=== PATIENT | male | born 1970 | race Caucasian/White ===

== ENCOUNTER 2017-01-14 03:20 | Emergency (ER) | payer BC ==
[2017-01-14] MEDS ORDERED: Ketorolac 60 MG/2 ML SDV IM ONE (03:59)
--- NOTE | 2017-01-14 05:32 | EDM.PDOC ---
ED HPI Trauma - General Chief Complaint: Lower Extremity Injury/Pain Stated Complaint: PAIN IN LEFT HIP - History of Present Illness INITIAL COMMENTS - FREE TEXT/NARRATIVE: HISTORY AND PHYSICAL: History of present illness: This 46-year-old male presents with chief complaint of left hip pain status post fall he denies other trauma or concern Review of systems: As per history of present illness and below otherwise all systems reviewed and negative. Past medical history: As per history of present illness and as reviewed below otherwise noncontributory. Surgical history: As per history of present illness and as reviewed below otherwise noncontributory. Social history: No reported history of drug or alcohol abuse. Family history: As per history of present illness and as reviewed below otherwise noncontributory. Physical exam: HEENT: Atraumatic, normocephalic, pupils reactive, negative for conjunctival pallor or scleral icterus, mucous membranes moist, throat clear, neck supple, nontender, trachea midline. Lungs: Clear to auscultation, breath sounds equal bilaterally, chest nontender. Heart: S1S2, regular, negative for clicks, rubs, or JVD. Abdomen: Soft, nondistended, nontender. Negative for masses or hepatosplenomegaly. Negative for costovertebral tenderness. Pelvis: Stable nontender. Genitourinary: Deferred. Rectal: Deferred. Extremities: Patient has mild tenderness his left hip he is no crepitation no point tenderness no erythema no warmth neurovascular exam is unremarkable Neuro: Awake, alert, oriented. Cranial nerves II through XII unremarkable. Cerebellum unremarkable. Motor and sensory unremarkable throughout. Exam nonfocal. Diagnostics: X-ray left hip with pelvis Therapeutics: None Impression: #1 observation status post fall #2 acute left hip injury (contusion) Definitive disposition and diagnosis as appropriate pending reevaluation and review of above. Allergies/ADRs: Allergies No Known Allergies Allergy (Verified 12/19/16 11:22) Home Medications: Ambulatory Orders Adalimumab [Humira] 40 mg SQ ONETIME 12/19/16 [Confirmed 01/14/17] hydrOXYzine HCl [Atarax] 1 tab PO TID 01/14/17 [Confirmed 01/14/17] traMADol [Ultram] 1 tab PO ASDIRECTED 01/14/17 [Confirmed 01/14/17] Past Medical History HEENT History: Reports: None Cardiovascular History: Reports: None Respiratory History: Reports: None Gastrointestinal History: Reports: None Genitourinary History: Reports: None Musculoskeletal History: Reports: None Neurological History: Reports: None Psychiatric History: Reports: None Endocrine/Metabolic History: Reports: None Hematologic History: Reports: None Immunologic History: Reports: None Oncologic (Cancer) History: Reports: None Dermatologic History: Reports: Psoriasis - Infectious Disease History Infectious Disease History: Reports: C-difficile Social & Family History - Family History Family Medical History: Noncontributory - Tobacco Use Smoking Status *Q: Current Every Day Smoker Years of Tobacco use: 10 Packs/Tins Daily: 0.5 Second Hand Smoke Exposure: Yes - Caffeine Use Caffeine Use: Reports: Soda, Tea - Recreational Drug Use Recreational Drug Use: No Review of Systems - Review of Systems Review Of Systems: ROS reveals no pertinent complaints other than HPI. Trauma Exam - Physical Exam Exam: See Below (See dictated) Course - Vital Signs Last Recorded V/S: Last Vital Signs Temp 36.3 C 01/14/17 04:43 Pulse 73 01/14/17 04:43 Resp 16 01/14/17 04:43 BP 124/61 01/14/17 04:43 Pulse Ox 98 01/14/17 04:43 - Orders/Labs/Meds Orders: Active Orders 24 hr Category Date Time Status Hip Min 2V or 3V Lt [CR] Stat Exams 01/14/17 03:23 Taken Pelvis 1V or 2V [CR] Stat Exams 01/14/17 05:00 Taken Meds: Medications Discontinued Medications Generic Name Dose Route Start Last Admin Trade Name Freq PRN Reason Stop Dose Admin Ketorolac Tromethamine 60 mg 01/14/17 03:59 01/14/17 04:05 Toradol IM 01/14/17 04:00 60 mg ONETIME ONE Administration Departure - Departure Time of Disposition: 05:31 Disposition: Home, Self-Care 01 Condition: good Clinical Impression: Fall, Contusion Forms: ED Department Discharge Additional Instructions: The following information is given to patients seen in the emergency department who are being discharged to home. This information is to outline your options for follow-up care. We provide all patients seen in our emergency department with a follow-up referral. The need for follow-up, as well as the timing and circumstances, are variable depending upon the specifics of your emergency department visit. If you don't have a primary care physician on staff, we will provide you with a referral. We always advise you to contact your personal physician following an emergency department visit to inform them of the circumstance of the visit and for follow-up with them and/or the need for any referrals to a consulting specialist. The emergency department will also refer you to a specialist when appropriate. This referral assures that you have the opportunity for followup care with a specialist. All of these measure are taken in an effort to provide you with optimal care, which includes your followup. Under all circumstances we always encourage you to contact your private physician who remains a resource for coordinating your care. When calling for followup care, please make the office aware that this follow-up is from your recent emergency room visit. If for any reason you are refused follow-up, please contact the [facility] emergency department at and asked to speak to the emergency department charge nurse. Motrin or Tylenol as directed follow up primary medical doctor one to 2 days return as needed as discussed - My Orders Last 24 Hours: My Active Orders 01/14/17 03:23 Hip Min 2V or 3V Lt [CR] Stat 01/14/17 05:00 Pelvis 1V or 2V [CR] Stat - Assessment/Plan Last 24 Hours: My Active Orders 01/14/17 03:23 Hip Min 2V or 3V Lt [CR] Stat 01/14/17 05:00 Pelvis 1V or 2V [CR] Stat
[2017-01-14 06:42] VITALS: BP 126/74
--- NOTE | 2017-01-16 17:21 | CR ---
EXAM DATE: 01/14/17 PATIENT'S AGE: 46 Patient: SUNG GUPTA Facility: [place], [place] Site . Site : 1970 Study: XRay Hip Left [id number]/4/2017 4:36:12 AM Ordering Physician: Doctor Crow Final Report: INDICATION: Fall 1 day prior, unable to bear weight TECHNIQUE: Two views left hip COMPARISON: None FINDINGS: Bones: Alignment is normal. No fractures or bone lesions. Joint spaces: Unremarkable. Soft tissues: Unremarkable. IMPRESSION: Negative. Dictated by Tino Nichols MD @ 01/14/2017 4:47:43 AM Dictated by: Tino Nichols MD @ 01/14/2017 04:47:52 (Electronic Signature) Report Signed by Proxy and Original Signed Document filed in the Medical Record. MTDD
--- NOTE | 2017-01-16 17:22 | CR ---
EXAM DATE: 01/14/17 PATIENT'S AGE: 46 Patient: SUNG GUPTA Facility: [place], [place] Site . Site : 1970 Study: XRay Pelvis [id number]/4/2017 5:17:14 AM Ordering Physician: Houston Ellis Final Report: INDICATION: INJURY TO LEFT HIP INDICATION: Left hip pain following fall TECHNIQUE: AP pelvis COMPARISON: None FINDINGS: Bones: Alignment is normal. No fractures or bone lesions. Joint spaces: Unremarkable. Soft tissues: Unremarkable. IMPRESSION: Negative. Dictated by Tino Nichols MD @ 01/14/2017 5:23:09 AM Dictated by: Tino Nichols MD @ 01/14/2017 05:23:19 (Electronic Signature) Report Signed by Proxy and Original Signed Document filed in the Medical Record. MTDD
--- NOTE | 2017-01-16 17:22 | CT ---
EXAM DATE: 01/14/17 PATIENT'S AGE: 46 Patient: SUNG GUPTA Facility: [place], [place] Site . Site : 1970 Study: CT Pelvis [id number]/4/2017 5:59:56 AM Ordering Physician: Houston Ellis Final Report: INDICATION: Trauma to left side of pelvis TECHNIQUE: CT pelvis without contrast. COMPARISON: None FINDINGS: Bones: Alignment is normal. No sign of acute fracture. No suspicious bony lesions. Joints: Unremarkable. Soft tissues: Unremarkable. IMPRESSION: No evidence of acute trauma. Dictated by Tino Nichols MD @ 01/14/2017 6:10:13 AM Dictated by: Tino Nichols MD @ 01/14/2017 06:10:21 (Electronic Signature) Report Signed by Proxy and Original Signed Document filed in the Medical Record. MTDD
== END 2017-01-14 06:28 | disposition home or self-care (01) ==
LOC: MW.ED 03:20
DX: S70.02XA Contusion of left hip, initial encounter (principal); F17.210 Nicotine dependence, cigarettes, uncomplicated; W19.XXXA Unspecified fall, initial encounter
CPT/HCPCS: 72170; 72192; 73502; 96372; 99284; J1885; 99283